=== PATIENT | male | born 1995 | race Caucasian/White ===

== ENCOUNTER → 2019-09-12 | Outpatient (CLI) | payer SELFPAY ==
[~2019-09-12] MED LIST: HOLD METFORMIN - RECEIVED CONTRAST 20 ML VIAL IV SCH; IOHEXOL 350 MG/ML 100 ML (OMNIPAQUE 350) VIAL IV ONE; NS 100 ML (IVPB) BAG IV ONE
--- NOTE | 2019-09-12 14:18 | Diagnostic Imaging Report ---
INDICATION: Maxillary sinus carcinoma and cough. Time of exam 2:05 PM No prior studies are available for comparison. The heart size is normal. The pulmonary vascularity is unremarkable. The lungs are clear. No infiltrate, effusion or pneumothorax is detected. Impression: No acute cardiopulmonary process is detected. Dictated by: Dictated on workstation # [id number]
--- NOTE | 2019-09-12 16:45 | Diagnostic Imaging Report ---
EXAM: CT maxillofacial without and with IV contrast and CT neck with IV contrast. INDICATION: Maxillary sinus carcinoma. COMPARISON: None. FINDINGS: There is a large heterogeneously enhancing mass centered in the right maxillary sinus and protruding through the anterior sinus wall which measures 5.3 x 3.9 x 4.1 cm. There are small erosions in the roof of the right maxillary sinus measuring approximately 0.4 cm and possible involvement of the inferior extraocular muscle adjacent these erosions. There is also erosion of the floor of the right maxillary sinus and hard palate. The roots of the right maxillary 1st and 2nd premolar and 1st molar are also involved. The paranasal sinuses are otherwise clear. The mastoids are clear. No other involvement of the orbits. The mandible is normally aligned and intact. The visualized intracranial contents are unremarkable. Enlarged right level 2 cervical lymph node measuring up to 1.0 cm in short axis dimension. No other cervical lymphadenopathy. Well-circumscribed nonenhancing lesions in the thyroid are subcentimeter and should not warrant further evaluation. The laryngeal and pharyngeal soft tissues are unremarkable this patient's mass or enhancement. The floor the mouth, tongue base and epiglottis are negative. No prevertebral fluid. The cervical carotid and vertebral arteries are grossly patent on this nondedicated exam. Lung apices are clear. No acute osseous findings in the neck. IMPRESSION: 1. Large heterogeneously enhancing mass in the right maxillary sinus protruding through the anterior sinus wall and eroding through both the floor and roof of the right maxillary sinus as above. 2. Right cervical level 2 enlarged lymph node without evidence of necrosis. No other cervical lymphadenopathy. Dictated by: Dictated on workstation # [id number]
== END ==
LOC: RAD 13:46 → EDSEX 14:45
PROVIDERS: ATTEND Plastic Surgery Plastic Surgery Within the Head and Neck
DX: C31.0 Malignant neoplasm of maxillary sinus (principal); D49.2 Neoplasm of unspecified behavior of bone, soft tissue, and skin
CPT/HCPCS: 70488; 70491; 71046